=== PATIENT | male | born 1945 | race Caucasian/White ===

== ENCOUNTER 2016-06-19 13:03 | Emergency (ER) | payer OTHER, MEDICARE ==
[2016-06-19 13:29] LABS: BASOPHIL 0.3 % (0-2); EOSINOPHIL 6.4 % (0-7); HGB 16.2 g/dl (13.2-18.0); LYMPHOCYTE 27.1 % (15-48); MCH 31.3 pg (25.0-31.0); MCHC 35.2 g/dL (32.0-36.0); MPV 9.8 fL (6.0-9.5); NEUTROPHIL 59.2 % (41-80); PLT 152 K/uL (150-400); RBC 5.17 M/uL (4.70-6.00); RDW 12.8 % (11.5-14.0); WBC 6.6 K/uL (4.0-10.5)
[2016-06-19 13:39] LABS: INR 0.95 (0.9-1.2); PROTHROMBIN TIME 12.3 SECONDS (11.7-14.0)
[2016-06-19 13:40] LABS: PTT 26.7 SECONDS (23.2-31.4)
[2016-06-19 13:51] LABS: ALBUMIN 4.5 g/dL (3.4-4.8); BILIRUBIN - TOTAL 0.8 mg/dL (0.1-1.0); CREATININE 1.8 mg/dL (0.7-1.2); GLOBULIN (CALCULATION) 2.8 g/dL (2.2-4.2); MAGNESIUM 2.31 mg/dL (1.40-2.10); POTASSIUM 4.7 mmol/L (3.5-5.1); TOTAL PROTEIN 7.3 g/dL (6.4-8.3)
[2016-06-19 13:53] LABS: CKMB 1.68 ng/mL (0.97-4.94); MYOGLOBIN 53 ng/mL (26-65); PRO-BNP 41 pg/mL (0-125); TROPONIN T < 0.010 ng/mL
== END 2016-06-19 22:55 | disposition other institution (70) ==
LOC: FER 13:03
PROVIDERS: Emergency Medicine
DX: R07.9 Chest pain, unspecified (principal); R06.02 Shortness of breath; I10 Essential (primary) hypertension; F43.10 Post-traumatic stress disorder, unspecified; K21.9 Gastro-esophageal reflux disease without esophagitis; E78.5 Hyperlipidemia, unspecified; Z95.5 Presence of coronary angioplasty implant and graft
CPT/HCPCS: 36415; 71010; 80053; 82550; 82553; 83735; 83874; 83880; 84484; 85025; 85610; 85730; 93005